=== PATIENT | female | born 1995 | race Hispanic/Latino ===

== ENCOUNTER 2017-12-10 19:48 | Emergency (ER) | payer SELFPAY ==
[2017-12-10 20:28] LABS: #Eosinphils 0.1 thou/uL (0.0-0.7); #Lymphocytes 1.5 thou/uL (1.20-3.40); #Monocytes 0.3 thou/uL (0.11-0.59); #Neutrophils 2.3 thou/uL (1.40-6.50); %Eosinophils 1.3 % (0.0-10.0); %Lymphocytes 35.5 % (28.0-48.0); %Monocytes 7.8 % (0.0-4.0); %Neutrophils 54.5 % (31.0-61.0); Hemoglobin 12.5 g/dL (12.0-16.0); Mean Corpuscular HGB CONC 31.7 g/dL (32.0-36.0); Mean Corpuscular Hemoglobin 30.4 pg (25.0-35.0); Mean Corpuscular Volume 95.8 fl (77.0-87.0); Mean Platelet Volume 7.5 fL (7.4-10.4); Platelet Count 229 thou/uL (130-400); RBC Distribution Width 11.7 % (11.5-14.5); Red Blood Cell (RBC) Count 4.12 mill/uL (4.00-5.20); White Blood Cell (WBC) Count 4.2 thou/uL (4.8-10.8)
[2017-12-10] MEDS ORDERED: Ketorolac Tromethamine 30 MG/ML VIAL ONE (20:41)
[2017-12-10 20:47] LABS: BHCG - Serum Negative (NEGATIVE); Pregs Control Background? CLEAR/WHITE (CLR/WHITE); Pregs Control Bar Appear? YES (CONTROL BAR)
[2017-12-10 20:50] LABS: ALT (SGPT) 14 U/L (8-55); AST (SGOT) 22 U/L (5-34); Albumin 4.4 g/dL (3.5-5.0); Alkaline Phosphatase 89 U/L (40-150); Anion Gap 13 mmol/L (10-20); BUN (Urea Nitrogen) 10 mg/dL (7.0-18.7); Bilirubin, Total 0.4 mg/dL (0.2-1.2); Calc. Creatinine Clearance 0 mL/min (70-130); Calcium 9.3 mg/dL (7.8-10.44); Carbon Dioxide 23 mmol/L (22-29); Chloride 106 mmol/L (98-107); Estimated GFR-MDRD Greater than 90; Globulin 3.1 g/dL (2.4-3.5); Glucose 86 mg/dL (70-105); Lipase 46 U/L (8-78); Potassium 3.9 mmol/L (3.5-5.1); Protein, Total 7.5 g/dL (6.0-8.3); Sodium 138 mmol/L (136-145)
--- NOTE | 2017-12-10 21:24 | ULT ---
PELVIC SONOGRAM TRANSABDOMINAL IMAGING WITH DUPLEX EVALUATION: History: Pelvic pain. FINDINGS: Urinary bladder is incompletely distended. Uterus has a homogeneous echo texture and is 7.6 cm. Endom etrium is 1.0 cm. No free fluid is evident within the pelvis. Right ovary is 2.8 cm. Left ovary is 3.3 cm. Each has a normal appearance and demonstrates good color and spectral doppler flow. IMPRESSION: 1. Normal pelvic sonogram. POS: [facility]
== END 2017-12-10 22:24 | disposition home or self-care (01) ==
LOC: ERS 19:48
DX: R10.2 Pelvic and perineal pain (principal)
CPT/HCPCS: 36415; 76856; 80053; 83690; 84703; 85025; 93976; 96374; J1885